=== PATIENT | female | born 1980 ===

== ENCOUNTER 2016-12-21 00:43 | Emergency (ER) | payer OTHER ==
[2016-12-21 00:44] VITALS: BMI 36.6
[2016-12-21 00:58] VITALS: BP 126/81; PULSE 90; RESP 16; TEMP 98.4; O2SAT 100
--- NOTE | 2016-12-21 01:37 | ED PDOC ---
HPI: Allergic Reaction Time Seen by Provider: 12/21/16 00:45 Chief Complaint (Nursing): Allergic Reaction History Per: Patient Additional Complaint(s): Pt. states earlier today she ate mofongo and 30 minutes later she developed diffuse erythematous pruritic rash along with redness and tearing to both eyes. She took claritin with good relief of rash and redness to L eye but symptoms remained on R eye. Denies SOB, throat swelling, hx of previous allergic reactions, pain, fever, contact lens use, hx of DM. Past Medical History Reviewed: Historical Data, Nursing Documentation, Vital Signs Vital Signs: Last Vital Signs Temp 98.4 F 12/21/16 00:55 Pulse 90 12/21/16 00:55 Resp 16 12/21/16 00:55 BP 126/81 12/21/16 00:55 Pulse Ox 100 12/21/16 00:55 - Medical History PMH: Anemia, Asthma, Diverticulitis, Pneumonia (2009) Denies: Chronic Kidney Disease - Family History Family History: States: Diabetes - Immunization History Hx Tetanus Toxoid Vaccination: No Hx Influenza Vaccination: No Hx Pneumococcal Vaccination: No - Home Medications Home Medications: Ambulatory Orders Medication Instructions Recorded Ferrous Sulfate 325 mg PO TID #0 tablet 12/26/15 Pantoprazole [Protonix EC Tab] 40 mg PO DAILY #0 ect 12/26/15 traMADol [Ultram] 50 mg PO BID PRN #0 tab 12/26/15 Dicyclomine [Bentyl] 10 mg PO QID PRN #12 cap 01/04/16 Docusate [Colace] 100 mg PO BID 01/04/16 Polyethylene Glycol 3350 [Miralax] 17 gm PO DAILY PRN #4 powd.pack 01/04/16 Prednisone [Deltasone] 20 mg PO BID #14 tablet 01/05/16 Olopatadine 0.1% Opht [Patanol 5 1 drop EACHEYE DAILY #1 bottle 12/21/16 Ml] - Allergies Allergies/Adverse Reactions: Allergies Allergy/AdvReac Type Severity Reaction Status Date / Time seafood Allergy RASH Uncoded 12/21/16 00:59 Review of Systems ROS Statement: Except As Marked, All Systems Reviewed And Found Negative Eyes: Positive for: Redness Physical Exam - Physical Exam Appears: Positive for: Well, Non-toxic, No Acute Distress Skin: Positive for: Normal Color, Warm. Negative for: Rash Eye Exam: Positive for: EOMI, PERRL, Conjunctival injection (R eye; L eye WNL; no discharge). Negative for: Nystagmus, Periorbital swelling, Periorbital tenderness ENT: Positive for: Normal ENT Inspection. Negative for: Pharyngeal Erythema, Tonsillar Exudate, Tonsillar Swelling Respiratory: Positive for: Normal Breath Sounds. Negative for: Accessory Muscle Use, Wheezing, Respiratory Distress - ECG O2 Sat by Pulse Oximetry: 100 - Progress ED Course And Treament: Benadryl 50mg PO ordered. Disposition - Clinical Impression Clinical Impression: Allergic reaction, Allergic conjunctivitis - Patient ED Disposition Is Patient to be Admitted: No - Disposition Disposition: Routine/Home Disposition Time: 01:38 Condition: STABLE Prescriptions: Olopatadine 0.1% Opht [Patanol 5 Ml] 1 drop EACHEYE DAILY #1 bottle Instructions: Food Allergy (ED), Conjunctivitis (ED) Print Language: ESTONIAN
== END 2016-12-21 02:00 | disposition home or self-care (01) ==
LOC: H.ER 00:43
DX: H57.9 Unspecified disorder of eye and adnexa (principal); H10.10 Acute atopic conjunctivitis, unspecified eye